=== PATIENT | female | born 2000 | race African-American/Black ===

== ENCOUNTER 2020-09-28 12:55 | Observation (INO) | payer BC, MEDICAID ==
[~2020-09-28] VITALS: Ht 162.6 cm; Wt 99.8 kg
== END 2020-09-28 14:30 | disposition home or self-care (01) ==
LOC: SPU 12:55
PROVIDERS: ADMIT Obstetrics & Gynecology; ATTEND Obstetrics & Gynecology
DX: O26.892 Other specified pregnancy related conditions, second trimester (principal); R10.9 Unspecified abdominal pain; Z3A.27 27 weeks gestation of pregnancy
CPT/HCPCS: 81002-TC; G0378

== ENCOUNTER 2020-11-14 15:30 | Observation (INO) | payer BC | END 2020-11-14 16:30 | disposition home or self-care (01) | LOC: SPU 15:30 | PROVIDERS: ADMIT Specialist; ATTEND Specialist | DX: O26.853 Spotting complicating pregnancy, third trimester (principal); Z3A.34 34 weeks gestation of pregnancy | CPT/HCPCS: 81002; G0378 ==